=== PATIENT | female | born 1995 | race Caucasian/White ===

== ENCOUNTER 2024-07-29 08:39 | Emergency (ER) | payer OTHER, SELFPAY ==
[2024-07-29 08:50] VITALS: BP 113/68; PULSE 87; RESP 18; TEMP 36.6; O2SAT 99; BMI 24.2
--- NOTE | 2024-07-29 08:57 | ED.GENADULT ---
HPI - General Adult General Chief complaint: Urogenital-Female Stated complaint: UTI been on ABX x 2 not working Time Seen by Provider: 07/29/24 08:45 Source: patient Mode of arrival: Ambulatory History of Present Illness HPI narrative: Patient is a 29-year-old otherwise healthy active [employer] [place] female who for the past 2 months has had urinary tract infection like symptoms. She stated that she was initially seen by [facility] after having symptoms. Had a urinalysis. Was told that she had an infection. Was placed on Macrobid and completed the course of the Macrobid. She states that her symptoms did improve but not completely resolved. She has been seen 2 other times for UTI like symptoms. States each time that she was had a urinalysis taken and was told that she would infection but she was only placed on antibiotics 1 other time. She just completed a course of Keflex. During this time she was also had STI testing that was negative. Also had testing that was negative. She currently has no abdominal pain. No CVA tenderness. No fevers. No vomiting. She comes to this emergency department for continued symptoms. She states that no cultures have been performed of her urine. Related Data Previous Rx's Medication Instructions Recorded phenazopyridine 100 mg tablet 100 mg PO TID PRN pain 6 doses #6 07/29/24 (Pyridium) tabs Allergies Allergy/AdvReac Type Severity Reaction Status Date / Time No Known Drug Allergies Allergy Verified 07/29/24 08:50 Review of Systems Review of Systems Narrative: See HPI Patient History Social History Smoking Status: Never smoker Smoking Status: Never smoker alcohol intake frequency: other Substance Use Type: does not use Exam Initial Vital Signs Initial Vital Signs: Vital Signs Temperature 97.8 F 07/29/24 08:50 Pulse Rate 87 07/29/24 08:50 Respiratory Rate 18 07/29/24 08:50 Blood Pressure 113/68 07/29/24 08:50 Pulse Oximetry 99 07/29/24 08:50 Oxygen Delivery Method Room Air 07/29/24 08:50 Const General: cooperative, comfortable and No ill appearing HENMT Head: normal to inspection and normocephalic Resp Effort & Inspection: normal respiratory effort Cardio Rate: regular rate GI Inspection: normal to inspection and non-distended Palpation: No firm and No tender Back/Spine/Pelvis Back: No CVA tenderness Skin General: no rashes or lesions noted Neuro General: patient alert, patient awake and moves all extremities Course Orders Ordered: ED Orders 07/29/24 08:58 Urinalysis and Microscopic Stat Urine Culture Stat Vital Signs Vital signs: Vital Signs - 8 hr 07/29/24 08:50 Temperature 97.8 F Pulse Rate 87 Respiratory Rate 18 Blood Pressure 113/68 Pulse Oximetry 99 Oxygen Delivery Method Room Air Medical Decision Making MDM Narrative Medical decision making narrative: Patient is well-appearing. Is afebrile. No signs of sepsis. Has no CVA tenderness. Low suspicion for pyelonephritis. She has had symptoms for the past 2 months. Has been on 2 separate courses of antibiotics with only minimal improvement. According to the patient there has never been cultures performed. The plan will be is to obtain a urine sample today. We will wait for the cultures to result before starting her on any further antibiotics. She was given Pyridium for the symptoms. She was instructed that if her urine culture was negative that she may need follow-up with specialist include either Urology or breakdown person. She has reported that she has already had STI testing and testing both of which were negative. She was given return precautions. She expressed understanding and agreement. Discharge Plan Departure Patient Disposition: Home Clinical Impression: Dysuria Instructions: DI for Dysuria -- Adult Activity Restrictions/Additional Instructions: Since he had been on 2 antibiotics up to this point and have not had a urine culture we will wait for the urine culture that was pending at the time of your discharge today before starting on further antibiotics. This should be a couple days for the results. Until then you can use the Pyridium as needed. Return to the emergency department for new symptoms. Prescriptions: New phenazopyridine [Pyridium] 100 mg tablet 100 mg PO TID PRN (Reason: pain) Qty: 6 0RF Stand Alone Forms: Patient Portal/API
[2024-07-29 09:26] LABS: Appearance Urine UA CLEAR; Bilirubin Urine UA NEGATIVE (NEGATIVE); Color Urine UA YELLOW; Glucose Urine UA NEGATIVE (Negative); Ketones Urine UA TRACE (NEGATIVE); Leukocyte Esterase Urine UA NEGATIVE (NEGATIVE); Nitrite Urine UA NEGATIVE (Negative); Occult Blood Urine UA 1+ (Negative); Protein Urine UA TRACE (Negative); Specific Gravity Urine UA >=1.030 (1.000-1.035)
[2024-07-29 09:32] LABS: pH Urine UA 5.5 (4.5-8.0)
[2024-07-29 09:33] LABS: Bacteria Urine Few (2-10); RBC Urine 5-10/HPF (0-5/HPF); Squamous Epithelial Cell Urine 10-30 /HPF (0-5/HPF); Urine Volume 10mL (spun); WBC Urine 5-10/HPF (0-5/HPF)
== END 2024-07-29 09:17 | disposition home or self-care (01) ==
PROVIDERS: Emergency Provider Emergency Medicine
DX: R30.0 Dysuria (principal)
CPT/HCPCS: 81001; 87086; 99281; 99283